=== PATIENT | male | born 1985 | race Caucasian/White ===

== ENCOUNTER 2019-06-19 22:04 | Emergency (ER) | payer SELFPAY ==
[~2019-06-19] VITALS: Ht 172.7 cm; Wt 63.5 kg
[2019-06-19 22:09] VITALS: Ht 172.7 cm; Wt 63.5 kg
[2019-06-20 00:58] VITALS: BP 121/80
== END 2019-06-20 00:59 | disposition home or self-care (01) ==
LOC: ED 22:04
DX: S70.02XA Contusion of left hip, initial encounter (principal); S09.8XXA Other specified injuries of head, initial encounter; Z88.0 Allergy status to penicillin; V23.4XXA Motorcycle driver injured in collision with car, pick-up truck or van in traffic accident, initial encounter; Y93.I9 Activity, other involving external motion; Y92.413 State road as the place of occurrence of the external cause; Y99.8 Other external cause status
CPT/HCPCS: J1885